=== PATIENT | male | born 1980 | race Caucasian/White ===

== ENCOUNTER 2016-06-24 13:36 | Emergency (ER) | payer SELFPAY ==
[2016-06-24 13:56] VITALS: BP 134/82; PULSE 92; RESP 18; TEMP 98.2
--- NOTE | 2016-06-24 14:24 | ED ---
Upper Extremity HPI - General Chief Complaint: Extremity Injury, Upper Stated Complaint: Right Shoulder Burn Sensation Time Seen by Provider: 06/24/16 14:03 Source: patient Mode of arrival: ambulatory Limitations: no limitations - History of Present Illness Initial Comments: Patient is a 36-year-old male with a chief complaint of right shoulder burning sensation for the past week. Patient reports that denies any injury and he just woke up one day and the pain was worse. Patient states that the pain is a burning sensation that radiates over his deltoid and occasionally will radiate down towards elbow. He states that the pain occurs with certain positions. He states that he has decreased range of motion of his right shoulder as well. 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 He reports that he does not have an orthopedic physician at this time. He states that he can feel me touch his entire arm at this time. He denies any decreased range of motion or strength in his hand or wrist or elbow.Patient denies any recent fever, chills, shortness of breath, chest pain, back pain, abdominal pain, nausea vomiting, numbness or tingling, dysuria or hematuria, constipation or diarrhea, headaches or visual changes, or any other current symptoms. - Related Data Home Medications Medication Instructions Recorded Confirmed ALPRAZolam [Xanax] 1 tab PO BID 11/04/13 02/12/16 Dextroamphetamine/Amphetamine 1 tab PO BID 11/04/13 02/12/16 [Adderall] SUMAtriptan SUCCINATE [Imitrex] 100 mg PO DIRECTED PRN 11/04/13 02/12/16 Omeprazole [PriLOSEC] 20 mg PO AC-BRKFST 06/14/14 02/12/16 Previous Rx's Medication Instructions Recorded Dexamethasone 0.75 mg PO DAILY #12 tab 06/24/16 Allergies Allergy/AdvReac Type Severity Reaction Status Date / Time No Known Allergies Allergy Verified 02/12/16 02:21 Review of Systems ROS Statement: Those systems with pertinent positive or pertinent negative responses have been documented in the HPI. ROS Other: All systems not noted in ROS Statement are negative. Past Medical History Additional Past Medical History / Comment(s): ADHD. headaches History of Any Multi-Drug Resistant Organisms: None Reported Past Surgical History: Back Surgery, Orthopedic Surgery Additional Past Surgical History / Comment(s): risa knee. discs removed in back Past Psychological History: No Psychological Hx Reported, ADD/ADHD Smoking Status: Current every day smoker Past Alcohol Use History: None Reported Past Drug Use History: None Reported General Exam Limitations: no limitations General appearance: alert, in no apparent distress Head exam: Present: atraumatic, normocephalic, normal inspection Eye exam: Present: normal appearance, PERRL, EOMI. Absent: scleral icterus, conjunctival injection, periorbital swelling ENT exam: Present: normal exam, mucous membranes moist Neck exam: Present: normal inspection. Absent: tenderness, meningismus, lymphadenopathy Respiratory exam: Present: normal lung sounds bilaterally. Absent: respiratory distress, wheezes, rales, rhonchi, stridor Cardiovascular Exam: Present: regular rate, normal rhythm, normal heart sounds. Absent: systolic murmur, diastolic murmur, rubs, gallop, clicks GI/Abdominal exam: Present: soft, normal bowel sounds. Absent: distended, tenderness, guarding, rebound, rigid Extremities exam: Present: normal inspection, full ROM, normal capillary refill. Absent: tenderness, pedal edema, joint swelling, calf tenderness Right Shoulder Exam: Present: normal inspection (Patient states she has limited abduction of the shoulder due to pain. Patient reports his only able to abduct his shoulder to 90.). Absent: full ROM Upper Arm exam: Present: normal inspection, full ROM Elbow exam: Present: normal inspection, full ROM Forearm Wrist exam: Present: normal inspection, full ROM Hand Wrist exam: Present: normal inspection, full ROM Neuro motor exam: Present: wrist extension intact, thumb opposition intact, thumb IP flexion intact, thumb adduction intact, fingers 2-5 abduction intact Vascular: Present: vascular compromise Back exam: Present: normal inspection Neurological exam: Present: alert, oriented X3, CN II-XII intact Psychiatric exam: Present: normal affect, normal mood Skin exam: Present: warm, dry, intact, normal color. Absent: rash Course Vital Signs 06/24/16 13:53 Temperature 98.2 F Pulse Rate 92 Respiratory 18 Rate Blood Pressure 134/82 O2 Sat by Pulse 96 Oximetry Medical Decision Making - Medical Decision Making Patient is a 34 year old male with 1 week of right shoulder pain and sharp burning pain. Patient reports it radaites down the deltoid. No associated injury. Xray reviewed to be negative. Patient given Rx for flexeril and steroids. Advised to follow up with Ortho. Given work note for today and tomorrow. Patient wanted the entire week off, I stated he needed to follow up with PCP if that is necessary. Patient understands treatment plan and will comply. Disposition Clinical Impression: Shoulder strain, Brachial plexus neuralgia, Rotator cuff injury Disposition: HOME SELF-CARE Condition: Good Instructions: Rotator Cuff Injury (ED), Rotator Cuff Tendinitis (ED) Additional Instructions: Patient instructed to follow-up with orthopedic physician. Return to the [facility] if any alarming signs or symptoms occur. Complete steroid prescription. Prescriptions: Dexamethasone 0.75 mg PO DAILY #12 tab Referrals: Adan Ashley MD [Primary Care Provider] - 1-2 days Aleksey Corona DO [Doctor of Osteopathic Medicine] - 1-2 days Time of Disposition: 14:39
--- NOTE | 2016-06-24 14:26 | XR ---
EXAMINATION TYPE: XR shoulder complete RT DATE OF EXAM: 06/24/2016 2:20 PM COMPARISON: NONE HISTORY: Pain TECHNIQUE: Shoulder examined in 3 FINDINGS: The humeral head articulates with the glenoid. The acromio-clavicular junction is normal. No acute fractures or dislocations are evident. A follow up study can be performed 7-10 days from acute trauma for continued pain. IMPRESSION: 1. Normal Shoulder
== END 2016-06-24 14:47 | disposition home or self-care (01) ==
LOC: EC 13:36
DX: S46.911A Strain of unspecified muscle, fascia and tendon at shoulder and upper arm level, right arm, initial encounter (principal); S46.001A Unspecified injury of muscle(s) and tendon(s) of the rotator cuff of right shoulder, initial encounter; G58.8 Other specified mononeuropathies; X58.XXXA Exposure to other specified factors, initial encounter; Z79.899 Other long term (current) drug therapy; F90.9 Attention-deficit hyperactivity disorder, unspecified type; F17.200 Nicotine dependence, unspecified, uncomplicated
CPT/HCPCS: 99283

== ENCOUNTER 2017-01-14 06:21 | Emergency (ER) | payer BC ==
[2017-01-14] MEDS ORDERED: HYDROmorphone 1 MG/ML 1 ML SYRINGE IM STA (07:02)
[2017-01-14] MEDS ORDERED: ONDANSETRON ODT 4 MG TAB PO STA (07:02)
--- NOTE | 2017-01-14 07:02 | ED ---
Headache HPI - General Mode of arrival: ambulatory Limitations: no limitations <Carlos Hurst - Last Filed: 01/14/17 07:03> <Amadeo Leonardo - Last Filed: 01/14/17 08:37> - General Chief Complaint: Headache Stated Complaint: headache Time Seen by Provider: 01/14/17 06:47 - History of Present Illness Initial Comments: 36 years old male medically headache since 2:30 AM, he has history of this headache almost once a month he has been suffering from this headache for the last 56 years, he sees Dr. Kong he had head CT and MRI done on the last 6 months. He denies any fever no chills denies any neck pain no chest pain or shortness of breath no abdominal pain no frequency urgency dysuria (Carlos Hurst ) - Related Data Home Medications Medication Instructions Recorded Confirmed Dextroamphetamine/Amphetamine 30 mg PO BID 11/04/13 01/14/17 [Adderall] SUMAtriptan SUCCINATE [Imitrex] 100 mg PO DAILY PRN 11/04/13 01/14/17 Meloxicam [Mobic] 15 mg PO DAILY PRN 01/14/17 01/14/17 Topiramate [Topamax] 100 mg PO BID 01/14/17 01/14/17 oxyCODONE HCL 20 mg PO TID 01/14/17 01/14/17 Allergies Allergy/AdvReac Type Severity Reaction Status Date / Time No Known Allergies Allergy Verified 01/14/17 08:02 Review of Systems ROS Other: All systems not noted in ROS Statement are negative. <Carlos Hurst - Last Filed: 01/14/17 07:03> ROS Other: All systems not noted in ROS Statement are negative. <Amadeo Leonardo - Last Filed: 01/14/17 08:37> ROS Statement: Those systems with pertinent positive or pertinent negative responses have been documented in the HPI. Past Medical History Additional Past Medical History / Comment(s): ADHD. headaches History of Any Multi-Drug Resistant Organisms: None Reported Past Surgical History: Back Surgery, Orthopedic Surgery Additional Past Surgical History / Comment(s): risa knee. discs removed in back Past Psychological History: No Psychological Hx Reported, ADD/ADHD Smoking Status: Current every day smoker Past Alcohol Use History: None Reported Past Drug Use History: None Reported <Carlos Hurst - Last Filed: 01/14/17 07:03> General Exam Limitations: no limitations <Carlos Hurst - Last Filed: 01/14/17 07:03> <Amadeo Leonardo - Last Filed: 01/14/17 08:37> - General Exam Comments Initial Comments: General: The patient is awake and alert, in no distress, and does not appear acutely ill. Skin: Skin is warm and dry and no rashes or lesions are noted. Eye: Pupils are equal, round and reactive to light, extra-ocular movements are intact; there is normal conjunctiva bilaterally. Ears, nose, mouth and throat: There are moist mucous membranes and no oral lesions. Neck: The neck is supple, there is no tenderness or signs of meningitis Cardiovascular: There is a regular rate and rhythm. No murmur, rub or gallop is appreciated. Respiratory: To auscultation bilateral, no wheezing no rhonchi no distress respiratory frazier noticed Gastrointestinal: Soft, non-distended, non-tender abdomen without masses or organomegaly noted. There is no rebound or guarding present. Bowel sounds are unremarkable. Back: There is no tenderness to palpation in the midline. There is no obvious deformity. Musculoskeletal: Normal ROM, no tenderness, There is no pedal edema. There is no calf tenderness or swelling. No cords were appreciated. Neurological: CN II-XII intact, Cranial nerves III through XII are intact. There are no obvious motor or sensory deficits. Coordination appears grossly intact. Speech is normal. Psychiatric: Cooperative, appropriate mood & affect, normal judgment. (Carlos Hurst) Course <Carlos Hurst - Last Filed: 01/14/17 07:03> <Amadeo Leonardo - Last Filed: 01/14/17 08:37> Vital Signs 01/14/17 06:23 Temperature 97.7 F Pulse Rate 70 Respiratory 16 Rate Blood Pressure 141/100 O2 Sat by Pulse 96 Oximetry Patient be endorsed to morning shift after 7 AM (Carlos Hurst) Medical Decision Making <Carlos Hurst - Last Filed: 01/14/17 07:03> <Amadeo Leonardo - Last Filed: 01/14/17 08:37> - Medical Decision Making Patient states she was feeling a little bit better. I gave the patient Toradol and Benadryl and he wanted to go home so he get some sleep in a dark room (Amadeo Leonardo) Disposition <Carlos Hurst - Last Filed: 01/14/17 07:03> Time of Disposition: 08:37 <Amadeo Leonardo - Last Filed: 01/14/17 08:37> Clinical Impression: Headache, Migraine Disposition: HOME SELF-CARE Instructions: Acute Headache (ED) Referrals: Adan Ashley MD [Primary Care Provider] - 1-2 days
--- NOTE | 2017-01-14 07:42 | CT ---
EXAMINATION TYPE: CT brain wo con DATE OF EXAM: 01/14/2017 COMPARISON: CT brain dated 08/10/2014 and MR brain dated 11/23/2014. HISTORY: Headache CT DLP: 1082 mGycm. Automated Exposure Control for Dose Reduction was Utilized. TECHNIQUE: CT scan of the head is performed without contrast. FINDINGS: There is no acute intracranial hemorrhage, mass effect, or midline shift identified. The ventricles and sulci are within normal limits in size. The globes are intact. Frontal sinuses are h ypoplastic. Scant amount of mucosal thickening is seen within the ethmoid and sphenoid sinuses. IMPRESSION: 1. No acute intracranial hemorrhage, mass effect, or midline shift is seen. 2. Minimal paranasal sinus disease.
[2017-01-14] MEDS ORDERED: KETOROLAC 60 MG/2 ML VIAL IVP STA (08:36)
[2017-01-14] MEDS ORDERED: diphenhydrAMINE 50 MG/ML 1 ML VIAL IVP STA (08:36)
[2017-01-14] MEDS ORDERED: KETOROLAC 60 MG/2 ML VIAL IM STA (08:43)
[2017-01-14] MEDS ORDERED: diphenhydrAMINE 50 MG/ML 1 ML VIAL IM STA (08:43)
[2017-01-14 09:04] VITALS: BP 118/57; PULSE 61; RESP 14; TEMP 98.2
== END 2017-01-14 09:03 | disposition home or self-care (01) ==
LOC: EC 06:21
DX: G43.909 Migraine, unspecified, not intractable, without status migrainosus (principal); F90.9 Attention-deficit hyperactivity disorder, unspecified type; F17.200 Nicotine dependence, unspecified, uncomplicated; Z79.891 Long term (current) use of opiate analgesic; Z79.899 Other long term (current) drug therapy
CPT/HCPCS: 70450; 99283; 96372 ×3; J1200; J1885; J1170

== ENCOUNTER 2017-08-05 11:14 | Emergency (ER) | payer BC, OTHER ==
[2017-08-05 11:24] VITALS: BP 123/79; PULSE 79; RESP 18; TEMP 97.4
[2017-08-05] MEDS ORDERED: ORPHENADRINE 30 MG/ML 2 ML VIAL IM STA (12:33)
[2017-08-05] MEDS ORDERED: KETOROLAC 30 MG/ML 1 ML VIAL IM STA (12:33)
--- NOTE | 2017-08-05 12:38 | ED ---
Back Pain HPI - General Chief Complaint: Back Pain/Injury Stated Complaint: Back and neck pain Time Seen by Provider: 08/05/17 12:28 Source: patient, RN notes reviewed Limitations: no limitations - History of Present Illness Initial Comments: This is a 37-year-old male who presents to the emergency department with chief complaint of acute on chronic back pain. 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 He states that he was repeatedly bending over and twisting. He states that since that time he feels like he strained muscles in his low back and describes the pain as sharp, occurring more so on the left side of his low back. Patient states that he has had previous lumbar surgeries. He states that he contacted his primary care provider, Dr. Ashley who advised him to present to the emergency department for evaluation and lumbar x-rays. Patient states that he currently does not take any medication for his low back pain. Currently rates his pain as 8/10. Denies saddle paresthesias or loss of bladder or bowel function. Denies any radiation of pain down the legs. Denies fevers or chills, abdominal pain, nausea or vomiting. - Related Data Home Medications Medication Instructions Recorded Confirmed Dextroamphetamine/Amphetamine 30 mg PO BID 11/04/13 01/14/17 [Adderall] SUMAtriptan SUCCINATE [Imitrex] 100 mg PO DAILY PRN 11/04/13 01/14/17 Meloxicam [Mobic] 15 mg PO DAILY PRN 01/14/17 01/14/17 Topiramate [Topamax] 100 mg PO BID 01/14/17 01/14/17 oxyCODONE HCL 20 mg PO TID 01/14/17 01/14/17 Previous Rx's Medication Instructions Recorded Ibuprofen 600 mg PO Q6HR #20 tablet 08/05/17 Allergies Allergy/AdvReac Type Severity Reaction Status Date / Time No Known Allergies Allergy Verified 08/05/17 11:24 Review of Systems ROS Statement: Those systems with pertinent positive or pertinent negative responses have been documented in the HPI. ROS Other: All systems not noted in ROS Statement are negative. Past Medical History Additional Past Medical History / Comment(s): ADHD. headaches History of Any Multi-Drug Resistant Organisms: None Reported Past Surgical History: Back Surgery, Orthopedic Surgery Additional Past Surgical History / Comment(s): risa knee. discs removed in back Past Psychological History: No Psychological Hx Reported, ADD/ADHD Smoking Status: Current every day smoker Past Alcohol Use History: None Reported Past Drug Use History: None Reported General Exam - General Exam Comments Initial Comments: General: Awake and alert, well-developed; in no apparent distress. HEENT: Head atraumatic, normocephalic. Pupils are equal, round and reactive to light. Extraocular movements intact. Oropharynx moist without erythema or exudate. Neck: Supple. Normal ROM. Cardiovascular: Regular rate and rhythm. No murmurs, rubs or gallops. Chest symmetrical. Respiratory: Lungs clear to auscultation bilaterally. No wheezes, rales or rhonchi. Normal respiratory effort with no use of accessory muscles. Musculoskeletal: Normal range of motion of spine. There is tenderness on palpation of bilateral lumbar paraspinal muscles. No bony point vertebral or SI joint tenderness. Patient is ambulating normally. Sensation is intact. Pedal and posterior tibial pulses are 2+ equal and palpable bilaterally. Skin: [place], warm and dry without rashes or lesions. Neurological: Alert and oriented x3. CN II-XII grossly intact. Speech is fluent and answers are appropriate. No focal neuro deficits. Psychiatric: Normal mood and affect. No overt signs of depression or anxiety noted. Limitations: no limitations Course Vital Signs 08/05/17 11:21 Temperature 97.4 F L Pulse Rate 79 Respiratory 18 Rate Blood Pressure 123/79 O2 Sat by Pulse 97 Oximetry Medical Decision Making - Medical Decision Making This is a 37-year-old male who presents to the emergency department for evaluation of acute on chronic back pain. Patient states that he strained his low back last Thursday while at work. There is tenderness on palpation of bilateral lumbar paraspinal muscles. Patient given Toradol and Norflex while in the emergency department. Lumbar x-rays were obtained. X-ray revealed no acute abnormalities. Patient's vital signs are stable and he is in no acute distress. Likely suffering from a lumbar strain. He will be discharged home. He is in agreement and voices understanding. All questions were answered. - Radiology Data Radiology results: report reviewed X-ray lumbar spine in impression: Uncomplicated appearance to the L5-S1 posterior interbody fusion. Mild degenerative changes above the fusion at L4 to L5. No vertebral compression collapsed or malalignment. Disposition Clinical Impression: Strain of lumbar region Disposition: HOME SELF-CARE Condition: Good Instructions: Low Back Strain (ED), Lower Back Exercises (ED) Additional Instructions: Please take medications as prescribed. Please follow up with primary care provider within 1-2 days. Return to emergency department if symptoms should worsen or any concerns arise. Prescriptions: Ibuprofen 600 mg PO Q6HR #20 tablet Referrals: Adan Ashley MD [Primary Care Provider] - 1-2 days Time of Disposition: 13:20
--- NOTE | 2017-08-05 13:12 | XR ---
EXAMINATION TYPE: XR lumbar spine 2 or 3V DATE OF EXAM: 08/05/2017 COMPARISON: NONE HISTORY: 37-year-old male low back pain from lifting TECHNIQUE: 3 views FINDINGS: 5 lumbar type vertebral bodies. L5-S1 posterior and interbody fusion is demonstrated. Mild degenerati ve disc disease above the fusion at L4-L5 and facet arthropathy. Vertebral body heights are maintaine d and alignment is preserved. IMPRESSION: Uncomplicated appearance to the L5-S1 posterior and interbody fusion. Mild degenerative changes above the fusion at L4-L5. No vertebral compression collapse or malalignment.
== END 2017-08-05 13:24 | disposition home or self-care (01) ==
LOC: EC 11:14
DX: S39.012A Strain of muscle, fascia and tendon of lower back, initial encounter (principal); F90.9 Attention-deficit hyperactivity disorder, unspecified type; F17.200 Nicotine dependence, unspecified, uncomplicated; Z79.899 Other long term (current) drug therapy; X50.1XXA Overexertion from prolonged static or awkward postures, initial encounter; Y92.69 Other specified industrial and construction area as the place of occurrence of the external cause; Y99.0 Civilian activity done for income or pay
CPT/HCPCS: 72100; 99283; 96372 ×2; J2360; J1885

== ENCOUNTER → 2017-08-15 | Outpatient (CLI) | payer BC ==
--- NOTE | 2017-08-15 14:26 | MR ---
EXAMINATION TYPE: MR lumbar spine wo con DATE OF EXAM: 08/15/2017 COMPARISON: NONE HISTORY: Disc degeneration disease TECHNIQUE: Multiplanar, multisequence images of the lumbar spine were acquired. L1-L2: Normal disc appearance without desiccation. No herniation, protrusion or disc bulging. No ca nal stenosis is present. Foramina are patent bilaterally. L2-L3: Normal disc appearance without desiccation. No herniation, protrusion or disc bulging. No ca nal stenosis is present. Foramina are patent bilaterally. L3-L4: Broad-based disc bulge causes only minimal anterior mass effect on the thecal sac. There is fa cet arthropathy with hypertrophy of the ligamentum flavum, no significant central stenosis. L4-L5: The posterior central broad-based disc bulge is again noted, there is only mild central stenos is. Circumferential extension of endplate disc complex encroaches minimally on the foramina. There is facet arthropathy with hypertrophy ligamentum flavum encroaching on the lateral recesses L5-S1: Postop changes as described. There is circumferential extension of endplate disc complex towar ds the left causing foraminal encroachment, correlate for left L5 radiculopathy, lateral extension of endplate disc complex, left lateral disc herniation suspected to have developed in the interval. Lumbar segments are intact. No paraspinal masses are identified. Conus medullaris has a normal appe arance. Postop changes are present status post lumbosacral fusion L5-S1 as on prior exam, loss of dis c height signal present at L5-S1 with endplate discogenic marrow signal change, intervertebral spacin g material, susceptibility artifact is present due to fixation hardware. Multilevel spondylosis prese nt. IMPRESSION: Findings suspicious for interval lateral disc herniation at L5-S1 although there is artifact present due to patient's hardware. Correlate for left L5 radiculopathy. Broad-based disc bulge again noted at L4-5, postop changes.
== END | disposition home or self-care (01) ==
LOC: RADMRIMAIN 09:58
PROVIDERS: ATTEND Family Medicine
DX: M51.26 Other intervertebral disc displacement, lumbar region (principal); Z98.890 Other specified postprocedural states
CPT/HCPCS: 72148

== ENCOUNTER 2018-04-03 17:08 | Emergency (ER) | payer OTHER ==
[2018-04-03 17:12] VITALS: TEMP 97.6
[2018-04-03] MEDS ORDERED: METOCLOPRAMIDE 5 MG/ML 2 ML VIAL IVP STA (17:27)
[2018-04-03] MEDS ORDERED: KETOROLAC 30 MG/ML 1 ML VIAL IVP STA (17:27)
[2018-04-03] MEDS ORDERED: SODIUM CHLORIDE 0.9% 1,000 ML IV STA (17:27)
[2018-04-03] MEDS ORDERED: diphenhydrAMINE 50 MG CAP PO STA (17:27)
--- NOTE | 2018-04-03 18:25 | ED ---
General Adult HPI - General Chief complaint: Headache Stated complaint: Headache Time Seen by Provider: 04/03/18 17:18 Source: patient, RN notes reviewed Mode of arrival: ambulatory Limitations: no limitations - History of Present Illness Initial comments: Patient 38-year-old male with significant past medical history for chronic headaches, presented to the emergency room today with a chief complaint of a headache that started at 7a. patient does admit to photosensitivity. Does admit to nausea and an episode of vomiting. Patient states that headache is located throughout his head. He states he has had similar headaches similar to this in the past. Patient states that he tried medication at home with little relief. Patient denies any new symptoms or complaints. Patient denies any recent fever, chills, shortness of breath, chest pain, back pain, abdominal pain , nausea or vomiting, numbness or tingling, dysuria or hematuria, visual changes , or any other complaints. - Related Data Home Medications Medication Instructions Recorded Confirmed Dextroamphetamine/Amphetamine 30 mg PO BID 11/04/13 01/14/17 [Adderall] SUMAtriptan SUCCINATE [Imitrex] 100 mg PO DAILY PRN 11/04/13 01/14/17 Meloxicam [Mobic] 15 mg PO DAILY PRN 01/14/17 01/14/17 Topiramate [Topamax] 100 mg PO BID 01/14/17 01/14/17 oxyCODONE HCL 20 mg PO TID 01/14/17 01/14/17 Previous Rx's Medication Instructions Recorded Ibuprofen 600 mg PO Q6HR #20 tablet 08/05/17 Allergies Allergy/AdvReac Type Severity Reaction Status Date / Time No Known Allergies Allergy Verified 04/03/18 17:12 Review of Systems ROS Statement: Those systems with pertinent positive or pertinent negative responses have been documented in the HPI. ROS Other: All systems not noted in ROS Statement are negative. Past Medical History Additional Past Medical History / Comment(s): ADHD. headaches History of Any Multi-Drug Resistant Organisms: None Reported Past Surgical History: Back Surgery, Orthopedic Surgery Additional Past Surgical History / Comment(s): risa knee. discs removed in back Past Psychological History: ADD/ADHD Smoking Status: Current every day smoker Past Alcohol Use History: None Reported Past Drug Use History: Marijuana General Exam - General Exam Comments Initial Comments: General: The patient is awake and alert, in no distress, and does not appear acutely ill. Eye: Pupils are equal, round and reactive to light. Extra-ocular movements are intact. No nystagmus. There is normal conjunctiva bilaterally. No signs of icterus. Ears, nose, mouth and throat: There are moist mucous membranes and no oral lesions. Neck: The neck is supple, there is no tenderness or JVD. Cardiovascular: There is a regular rate and rhythm. No murmur, rub or gallop is appreciated. Respiratory: Lungs are clear to auscultation, respirations are non-labored, breath sounds are equal. No wheezes, stridor, rales, or rhonchi. Musculoskeletal: Normal ROM, no tenderness. Sensation intact. Strength 5/5. Pulses equal bilaterally 2+. Neurological: A&O x 3. CN II-XII intact, There are no obvious motor or sensory deficits. Coordination appears grossly intact. Speech is normal. Skin: Skin is warm and dry and no rashes or lesions are noted. Psychiatric: Cooperative, appropriate mood & affect, normal judgment. Limitations: no limitations Course Vital Signs 04/03/18 17:10 Temperature 97.6 F Pulse Rate 74 Respiratory 20 Rate Blood Pressure 136/87 O2 Sat by Pulse 99 Oximetry Medical Decision Making - Medical Decision Making Patient reexamined at this time shows no signs of distress. Isn't feeling better after Reglan, Benadryl, Toradol, IV fluids. Patient discharged home. He is advised to continue anti-inflammatories for a rebound headache. Patient states understanding and is in agreement. Disposition Clinical Impression: Headache Disposition: HOME SELF-CARE Condition: Good Instructions: Acute Headache (ED) Additional Instructions: Please use medication as discussed. Please follow-up with family doctor in the next 2 days of symptoms have not improved. Please return to emergency room if the symptoms increase or worsen or for any other concerns. Is patient prescribed a controlled substance at d/c from ED?: No Referrals: Adan Ashley MD [Primary Care Provider] - 1-2 days Time of Disposition: 18:57
[2018-04-03 19:01] VITALS: BP 103/65; PULSE 60; RESP 18
== END 2018-04-03 19:21 | disposition home or self-care (01) ==
LOC: EC 17:08
DX: R51 Headache (principal); R11.2 Nausea with vomiting, unspecified; F90.9 Attention-deficit hyperactivity disorder, unspecified type; F17.200 Nicotine dependence, unspecified, uncomplicated; Z79.891 Long term (current) use of opiate analgesic; Z79.899 Other long term (current) drug therapy
CPT/HCPCS: 99284; 96374; 96375; 96361; J2765; J1885

== ENCOUNTER 2019-08-10 06:24 | Emergency (ER) | payer OTHER ==
[2019-08-10 06:31] VITALS: PULSE 104; RESP 20; TEMP 97.4
[2019-08-10 06:33] VITALS: BP 114/78
--- NOTE | 2019-08-10 07:06 | ED ---
General Adult HPI - General Chief complaint: Upper Respiratory Infection Stated complaint: Congestion/Cough Time Seen by Provider: 08/10/19 06:34 Source: patient, RN notes reviewed Mode of arrival: ambulatory - History of Present Illness Initial comments: 39-year-old male with a past medical history of headaches presents to the emergency department for a chief complaint of cough 2 days. Patient states he has had a nonproductive cough for the past 2 days. States he does have associated congestion as well. Admits that when he gets into a coughing fit he has shortness of breath but otherwise does not have shortness of breath. Patient has not had any fevers but does state he felt warm yesterday. Patient denies any domestic or international travel history in the past 14 days.Patient has no other complaints at this time including shortness of breath, chest pain, abdominal pain, nausea or vomiting, headache, or visual changes. - Related Data Home Medications Medication Instructions Recorded Confirmed Dextroamphetamine/Amphetamine 30 mg PO BID 11/04/13 01/14/17 [Adderall] SUMAtriptan SUCCINATE [Imitrex] 100 mg PO DAILY PRN 11/04/13 01/14/17 Meloxicam [Mobic] 15 mg PO DAILY PRN 01/14/17 01/14/17 Topiramate [Topamax] 100 mg PO BID 01/14/17 01/14/17 oxyCODONE HCL [oxyCODONE HCL (IR)] 20 mg PO TID 01/14/17 01/14/17 Previous Rx's Medication Instructions Recorded Ibuprofen 600 mg PO Q6HR #20 tablet 08/05/17 Benzonatate [Tessalon Perles] 200 mg PO Q8H PRN #15 capsule 08/10/19 Allergies Allergy/AdvReac Type Severity Reaction Status Date / Time No Known Allergies Allergy Verified 08/10/19 06:32 Review of Systems ROS Statement: Those systems with pertinent positive or pertinent negative responses have been documented in the HPI. ROS Other: All systems not noted in ROS Statement are negative. Past Medical History Additional Past Medical History / Comment(s): ADHD. headaches History of Any Multi-Drug Resistant Organisms: None Reported Past Surgical History: Back Surgery, Orthopedic Surgery Additional Past Surgical History / Comment(s): risa knee. discs removed in back Past Psychological History: ADD/ADHD Smoking Status: Current every day smoker Past Alcohol Use History: Occasional Past Drug Use History: Marijuana General Exam General appearance: alert, in no apparent distress Head exam: Present: atraumatic, normocephalic, normal inspection Eye exam: Present: normal appearance, PERRL, EOMI. Absent: scleral icterus, conjunctival injection, periorbital swelling ENT exam: Present: normal exam, normal oropharynx, mucous membranes moist, TM's normal bilaterally, normal external ear exam Neck exam: Present: normal inspection, full ROM. Absent: tenderness, meningismus, lymphadenopathy Respiratory exam: Present: normal lung sounds bilaterally. Absent: respiratory distress, wheezes, rales, rhonchi, stridor Cardiovascular Exam: Present: regular rate, normal rhythm, normal heart sounds. Absent: systolic murmur, diastolic murmur, rubs, gallop, clicks Neurological exam: Present: alert Psychiatric exam: Present: normal affect, normal mood Course Vital Signs 08/10/19 08/10/19 06:27 07:14 Temperature 97.4 F L Pulse Rate 104 H Respiratory 20 20 Rate Blood Pressure 114/78 O2 Sat by Pulse 96 Oximetry Medical Decision Making - Medical Decision Making Vitals are stable. Patient is well appearing. Influenza is negative. Chest x- ray negative. At this time current recommendations are not to test for Covid 19 unless less patient has had certain travel history or exposure. I discussed this with the patient and he is understanding. He will self isolate. He will return for worsening symptoms or worsening shortness of breath. - Lab Data Lab Results 08/10/19 Range/Units 06:34 Influenza Type A RNA Not Detected (Not Detectd) Influenza Type B (PCR) Not Detected (Not Detectd) Disposition Clinical Impression: Cough Disposition: HOME SELF-CARE Condition: Good Instructions (If sedation given, give patient instructions): Acute Cough (ED) Additional Instructions: Take medications as directed. Please follow up with primary care in 1-2 days. Return to the emergency department for any worsening symptoms. Prescriptions: Benzonatate [Tessalon Perles] 200 mg PO Q8H PRN #15 capsule PRN Reason: Cough Is patient prescribed a controlled substance at d/c from ED?: No Referrals: Adan Ashley MD [Primary Care Provider] - 1-2 days Time of Disposition: 07:24
--- NOTE | 2019-08-10 07:15 | XR ---
EXAMINATION TYPE: XR chest 2V DATE OF EXAM: 08/10/2019 COMPARISON: 06/05/2013 HISTORY: Cough, congestion and difficulty breathing TECHNIQUE: Frontal and lateral views of the chest are obtained. FINDINGS: There is no focal air space opacity, pleural effusion, or pneumothorax seen. The cardiac silhouette size is within normal limits. The osseous structures are intact. IMPRESSION: No acute cardiopulmonary process.
== END 2019-08-10 07:33 | disposition home or self-care (01) ==
LOC: EC 06:24
DX: R05 Cough (principal); R09.89 Other specified symptoms and signs involving the circulatory and respiratory systems; F90.9 Attention-deficit hyperactivity disorder, unspecified type; F17.200 Nicotine dependence, unspecified, uncomplicated; Z79.891 Long term (current) use of opiate analgesic; Z79.899 Other long term (current) drug therapy; Z86.69 Personal history of other diseases of the nervous system and sense organs
CPT/HCPCS: 71046; 87502; 99283

== ENCOUNTER 2019-08-21 22:23 | Emergency (ER) | payer OTHER ==
[2019-08-21] MEDS ORDERED: SODIUM CHLORIDE 0.9% 1,000 ML IV STA (23:05)
--- NOTE | 2019-08-21 23:08 | ED ---
General Adult HPI - General Chief complaint: Upper Respiratory Infection Stated complaint: SOB Time Seen by Provider: 08/21/19 22:33 Source: patient, RN notes reviewed, old records reviewed Mode of arrival: ambulatory Limitations: no limitations - History of Present Illness Initial comments: 39-year-old male patient presents for chief complaint of cough. Patient reports that this has been ongoing for the last 11 days. Patient reports that he is short of breath. Patient reports with walking he becomes winded. Patient reports that after coughing he feels like hes going to pass out. Patient states that his lungs are sore from coughing.. Denies any focal area of pain and states he believes it is from the coughing. States that he was having fevers 08/09-08/12 but not any longer. Denies any history of heart problems. Denies any other complaints. Systemic: Pt denies fatigue, fever/chills, rash. Pt denies weakness, night sweats, weight loss. Neuro: Pt denies headache, visual disturbances, syncope. HEENT: Pt denies ocular discharge or irritation, otalgia, rhinorrhea, pharyngitis or notable lymphadenopathy. Cardiopulmonary: Pt denies heart palpitations, dyspnea on exertion. Abdominal/GI: Pt denies abdominal pain, n/v/d. : Pt denies dysuria, burning w/ urination, frequency/urgency. Denies new onset urinary or bowel incontinence. MSK: Pt denies myalgia, loss of strength or function in extremities. Neuro: Pt denies new onset weakness, paresthesias. - Related Data Home Medications Medication Instructions Recorded Confirmed Dextroamphetamine/Amphetamine 30 mg PO BID 11/04/13 01/14/17 [Adderall] SUMAtriptan SUCCINATE [Imitrex] 100 mg PO DAILY PRN 11/04/13 01/14/17 Meloxicam [Mobic] 15 mg PO DAILY PRN 01/14/17 01/14/17 Topiramate [Topamax] 100 mg PO BID 01/14/17 01/14/17 oxyCODONE HCL [oxyCODONE HCL (IR)] 20 mg PO TID 01/14/17 01/14/17 Previous Rx's Medication Instructions Recorded Ibuprofen 600 mg PO Q6HR #20 tablet 08/05/17 Benzonatate [Tessalon Perles] 200 mg PO Q8H PRN #15 capsule 08/10/19 Albuterol Inhaler [Ventolin Hfa 1 - 2 puff INHALATION Q4-6H PRN #1 08/22/19 Inhaler] inhaler Allergies Allergy/AdvReac Type Severity Reaction Status Date / Time No Known Allergies Allergy Verified 08/21/19 22:31 Review of Systems ROS Statement: Those systems with pertinent positive or pertinent negative responses have been documented in the HPI. ROS Other: All systems not noted in ROS Statement are negative. Past Medical History Additional Past Medical History / Comment(s): ADHD. headaches History of Any Multi-Drug Resistant Organisms: None Reported Past Surgical History: Back Surgery, Orthopedic Surgery Additional Past Surgical History / Comment(s): risa knee. discs removed in back Past Psychological History: ADD/ADHD Smoking Status: Current every day smoker Past Alcohol Use History: Occasional Past Drug Use History: Marijuana General Exam - General Exam Comments Initial Comments: Constitutional: NAD, AOX3, Pt has pleasant affect. HEENT: NC/AT, trachea midline, neck supple, no lymphadenopathy. Posterior phary nx non erythematous, without exudates. External ears appear normal, without discharge. Mucous membranes moist. Eyes PERRLA, EOM intact. There is no scleral icterus. No pallor noted. Cardiopulmonary: RRR, no murmurs, rubs or gallops, no JVD noted. Lungs CTAB in anterior and posterior mancilla. No peripheral edema. Abdominal exam: Abdomen soft and non-distended. Abdomen non-tender to palpation in all 4 quadrants. Bowel sounds active in LLQ. No hepatosplenomegaly. No ecchymosis Neuro: CN II-XII grossly intact. No nuchal rigidity. No raccon eyes, no holder sign, no hemotympanum. No cervical spinal tenderness. MSK: No posterior calf tenderness bilaterally, homans sign negative bilaterally. Posterior tibialis and radial pulse +2 bilaterally. Sensation intact in upper and lower extremities. Full active ROM in upper and lower extremities, 5/5 stregnth. Limitations: no limitations Course Vital Signs 08/21/19 22:27 Temperature 98.2 F Pulse Rate 94 Respiratory 20 Rate Blood Pressure 117/76 O2 Sat by Pulse 95 Oximetry Medical Decision Making - Medical Decision Making 39-year-old male patient presents for chief complaint of cough. Patient reports that this has been ongoing for the last 11 days. Patient reports that he is short of breath. Patient reports with walking he becomes winded. Patient reports that after coughing he feels like hes going to pass out. Patient states that his lungs are sore from coughing.. Denies any focal area of pain and states he believes it is from the coughing. States that he was having fevers 08/09-08/12 but not any longer. Denies any history of heart problems. Denies any other complaints. Patient pt viral signs are stable, afebrile. Physical exam didn't display acute pathology. Laboratory investigations were obtained and are noncompressive. D-dimer is negative. Troponin negative. EKG nonischemic. Chest revealed no acute process. There is clinical concern the patient could potentially be infected with COVID 19. Ambulatory pulse ox in room was obtained and patient did not saturate below 95%. Patient will be discharged to follow up with primary care provider will return to ER if condition worsens. Advised to self quarantine for the next 14 days. Case discussed with Dr. Billings. - Lab Data Result diagrams: 08/21/19 23:20 08/21/19 23:20 Lab Results 08/21/19 08/21/19 08/21/19 Range/Units 23:20 23:20 23:20 WBC 7.0 (3.8-10.6) k/uL RBC 4.94 (4.30-5.90) m/uL Hgb 15.5 (13.0-17.5) gm/dL Hct 43.7 (39.0-53.0) % MCV 88.5 (80.0-100.0) fL MCH 31.4 (25.0-35.0) pg MCHC 35.5 (31.0-37.0) g/dL RDW 12.8 (11.5-15.5) % Plt Count 293 (150-450) k/uL Neutrophils % 55 % Lymphocytes % 28 % Monocytes % 9 % Eosinophils % 3 % Basophils % 2 % Neutrophils # 3.9 (1.3-7.7) k/uL Lymphocytes # 2.0 (1.0-4.8) k/uL Monocytes # 0.6 (0-1.0) k/uL Eosinophils # 0.2 (0-0.7) k/uL Basophils # 0.1 (0-0.2) k/uL D-Dimer 0.23 (<0.60) mg/L FEU Sodium 138 (137-145) mmol/L Potassium 4.2 (3.5-5.1) mmol/L Chloride 102 (98-107) mmol/L Carbon Dioxide 28 (22-30) mmol/L Anion Gap 8 mmol/L BUN 16 (9-20) mg/dL Creatinine 1.00 (0.66-1.25) mg/dL Est GFR (CKD-EPI)AfAm >90 (>60 ml/min/1.73 sqM) Est GFR (CKD-EPI)NonAf >90 (>60 ml/min/1.73 sqM) Glucose 91 (74-99) mg/dL Calcium 9.4 (8.4-10.2) mg/dL Magnesium 2.2 (1.6-2.3) mg/dL Total Bilirubin 0.7 (0.2-1.3) mg/dL AST 31 (17-59) U/L ALT 31 (4-49) U/L Alkaline Phosphatase 69 (38-126) U/L Troponin I (0.000-0.034) ng/mL NT-Pro-B Natriuret Pep pg/mL Total Protein 7.6 (6.3-8.2) g/dL Albumin 4.7 (3.5-5.0) g/dL 08/21/19 08/21/19 Range/Units 23:20 23:20 WBC (3.8-10.6) k/uL RBC (4.30-5.90) m/uL Hgb (13.0-17.5) gm/dL Hct (39.0-53.0) % MCV (80.0-100.0) fL MCH (25.0-35.0) pg MCHC (31.0-37.0) g/dL RDW (11.5-15.5) % Plt Count (150-450) k/uL Neutrophils % % Lymphocytes % % Monocytes % % Eosinophils % % Basophils % % Neutrophils # (1.3-7.7) k/uL Lymphocytes # (1.0-4.8) k/uL Monocytes # (0-1.0) k/uL Eosinophils # (0-0.7) k/uL Basophils # (0-0.2) k/uL D-Dimer (<0.60) mg/L FEU Sodium (137-145) mmol/L Potassium (3.5-5.1) mmol/L Chloride (98-107) mmol/L Carbon Dioxide (22-30) mmol/L Anion Gap mmol/L BUN (9-20) mg/dL Creatinine (0.66-1.25) mg/dL Est GFR (CKD-EPI)AfAm (>60 ml/min/1.73 sqM) Est GFR (CKD-EPI)NonAf (>60 ml/min/1.73 sqM) Glucose (74-99) mg/dL Calcium (8.4-10.2) mg/dL Magnesium (1.6-2.3) mg/dL Total Bilirubin (0.2-1.3) mg/dL AST (17-59) U/L ALT (4-49) U/L Alkaline Phosphatase (38-126) U/L Troponin I <0.012 (0.000-0.034) ng/mL NT-Pro-B Natriuret Pep 25 pg/mL Total Protein (6.3-8.2) g/dL Albumin (3.5-5.0) g/dL - EKG Data -: EKG Interpreted by Me (and Dr. Billings) EKG Comments: Ventricular rate 80, VT interval 178, QRS 94, QT/QTC 37/431. Normal sinus rhythm, normal EKG, no concern for acute ischemia. Disposition Clinical Impression: Cough Disposition: HOME SELF-CARE Condition: Stable Instructions (If sedation given, give patient instructions): Acute Cough (ED) Additional Instructions: Follow-up with primary care provider tomorrow. Use albuterol puff inhaler as needed. Return to ER if condition worsens or if you feel like your breathing is worsening in anyway. Self quarantine for next 14 days. Prescriptions: Albuterol Inhaler [Ventolin Hfa Inhaler] 1 - 2 puff INHALATION Q4-6H PRN #1 inhaler PRN Reason: Cough Is patient prescribed a controlled substance at d/c from ED?: No Referrals: Adan Ashley MD [Primary Care Provider] - 1-2 days
--- NOTE | 2019-08-21 23:28 | XR ---
EXAMINATION TYPE: XR chest 1V DATE OF EXAM: 08/21/2019 COMPARISON: 08/10/2019 HISTORY: Cough TECHNIQUE: Single view FINDINGS: Heart and mediastinum are normal. Lungs are clear. Diaphragm is normal. Bony thorax appears normal. IMPRESSION: Normal chest. No change.
[2019-08-21 23:30] LABS: Basophils # (A) 0.1 k/uL (0-0.2); Basophils % (A) 2 %; Eosinophils # (A) 0.2 k/uL (0-0.7); Eosinophils % (A) 3 %; HCT 43.7 % (39.0-53.0); HGB 15.5 gm/dL (13.0-17.5); Lymphocytes % (A) 28 %; MCH 31.4 pg (25.0-35.0); MCHC 35.5 g/dL (31.0-37.0); MCV 88.5 fL (80.0-100.0); Mean Platelet Volume 6.8; Monocytes # (A) 0.6 k/uL (0-1.0); Monocytes % (A) 9 %; Neutrophils # (A) 3.9 k/uL (1.3-7.7); Neutrophils % (A) 55 %; Platelet Count 293 k/uL (150-450); RBC 4.94 m/uL (4.30-5.90); RDW 12.8 % (11.5-15.5)
[2019-08-21 23:38] LABS: ALT 31 U/L (4-49); AST 31 U/L (17-59); African American GFR (CKD) >90 (>60 ml/min/1.73 sqM); Albumin 4.7 g/dL (3.5-5.0); Alkaline Phosphatase 69 U/L (38-126); Anion Gap 8 mmol/L; Blood Urea Nitrogen 16 mg/dL (9-20); Calcium 9.4 mg/dL (8.4-10.2); Carbon Dioxide 28 mmol/L (22-30); Chloride 102 mmol/L (98-107); Glucose 91 mg/dL (74-99); Magnesium 2.2 mg/dL (1.6-2.3); Non-African American GFR(CKD) >90 (>60 ml/min/1.73 sqM); Potassium 4.2 mmol/L (3.5-5.1); Sodium 138 mmol/L (137-145); Total Bilirubin 0.7 mg/dL (0.2-1.3); Total Protein 7.6 g/dL (6.3-8.2)
[2019-08-22 00:44] VITALS: BP 121/77; PULSE 74; RESP 18; TEMP 98.1
== END 2019-08-22 00:44 | disposition home or self-care (01) ==
LOC: EC 22:23
DX: R05 Cough (principal); R06.02 Shortness of breath; Z20.828 Contact with and (suspected) exposure to other viral communicable diseases; F90.9 Attention-deficit hyperactivity disorder, unspecified type; F17.200 Nicotine dependence, unspecified, uncomplicated; Z79.891 Long term (current) use of opiate analgesic; Z79.899 Other long term (current) drug therapy; Z86.69 Personal history of other diseases of the nervous system and sense organs
CPT/HCPCS: 36415; 71045; 80053; 83735; 83880; 84484; 85025; 85379; 93005; 96360; 99285

== ENCOUNTER 2019-12-30 09:59 | Day surgery (SDC) | payer OTHER ==
[2019-12-28 13:08] VITALS: BMI 30.8
[~2019-12-30 09:59] MED LIST: LACTATED RINGERS 1,000 ML IV SCH; LIDOCAINE 1% (10MG/ML) FOR IV START INTRADERMA PRN
[2019-12-30 11:09] VITALS: TEMP 97.8
[2019-12-30] MEDS ORDERED: LACTATED RINGERS 1,000 ML IV ONE (11:14)
[2019-12-30] MEDS ORDERED: LIDOCAINE 1% INJ 10MG/ML (20 ML MDV) ONE (12:39)
[2019-12-30] MEDS ORDERED: PROPOFOL 10 MG/ML 20 ML VIAL IV ONE (12:39)
--- NOTE | 2019-12-30 12:40 | P.GSHP ---
History of Present Illness H&P Date: 12/30/19 Chief Complaint: GERD 38-year-old male presents today for EGD. He's had issues with GERD. Past Medical History Past Medical History: GERD/Reflux Additional Past Medical History / Comment(s): ADHD. headaches History of Any Multi-Drug Resistant Organisms: None Reported Past Surgical History: Back Surgery, Orthopedic Surgery Additional Past Surgical History / Comment(s): risa knee SX. discs removed in back Past Anesthesia/Blood Transfusion Reactions: No Reported Reaction Smoking Status: Current every day smoker - Past Family History Mother Family Medical History: No Reported History Medications and Allergies Home Medications Medication Instructions Recorded Confirmed Type Dextroamphetamine/Amphetamine 30 mg PO BID 11/04/13 12/28/19 History [Adderall] Meloxicam [Mobic] 15 mg PO DAILY PRN 01/14/17 12/28/19 History Benzonatate [Tessalon Perles] 200 mg PO Q8H PRN #15 capsule 08/10/19 12/28/19 Rx Albuterol Inhaler (Mhu) [Ventolin 1 - 2 puff INHALATION Q4-6H PRN #1 08/22/19 12/28/19 Rx Hfa Inhaler (Mhu)] inhaler Ibuprofen 600 mg PO Q6HR PRN 12/28/19 12/28/19 History Omeprazole [PriLOSEC] 20 mg PO AC-BID 12/28/19 12/28/19 History Allergies Allergy/AdvReac Type Severity Reaction Status Date / Time No Known Allergies Allergy Verified 12/28/19 13:01 Surgical - Exam Vital Signs Temp Pulse Resp BP Pulse Ox 97.8 F 69 18 124/82 97 12/30/19 11:08 12/30/19 11:08 12/30/19 11:08 12/30/19 11:08 12/30/19 11:08 - General well developed, well nourished, no distress - Eyes PERRL - ENT normal pinna - Neck no masses - Respiratory normal expansion - Cardiovascular Rhythm: regular - Abdomen Abdomen: soft, non tender Assessment and Plan Assessment: GERD. We'll perform EGD.
--- NOTE | 2019-12-30 12:49 | P.OP ---
Date of Procedure: 12/30/19 Preoperative Diagnosis: GERD Postoperative Diagnosis: Antral gastritis Small sliding hiatal hernia Mild esophagitis Procedure(s) Performed: EGD Anesthesia: MAC Surgeon: William Alston Pathology: other (Antrum, esophagus) Condition: stable Disposition: PACU Description of Procedure: The patient's placed on the endoscopy table in the lateral position. He received IV sedation. The gastroscope placed oropharynx and passed in the esophagus and stomach. Scope was then placed through the pylorus. First and second portion of the duodenum appeared normal. Scope was then brought back the antrum this. Mildly inflamed. A biopsies performed. Scope was unretroflexed and remainder some appeared normal. There was a small sliding hiatal hernia. The GE junction was at 47. The distal esophagus appeared minimally inflamed and a biopsies performed. The proximal esophagus appeared normal. Scope was withdrawn for patient.
[2019-12-30 13:10] VITALS: BP 118/75; PULSE 71; RESP 16
== END 2019-12-30 13:22 | disposition home or self-care (01) ==
LOC: ORWHC2ENDO 09:59
PROVIDERS: ATTEND Surgery
DX: K29.50 Unspecified chronic gastritis without bleeding (principal); K44.9 Diaphragmatic hernia without obstruction or gangrene; K21.0 Gastro-esophageal reflux disease with esophagitis; F90.9 Attention-deficit hyperactivity disorder, unspecified type; F17.200 Nicotine dependence, unspecified, uncomplicated; Z79.899 Other long term (current) drug therapy; Z98.890 Other specified postprocedural states
CPT/HCPCS: 88305; 43239; J2001; J2704

== ENCOUNTER → 2020-01-12 | Outpatient (CLI) | payer OTHER ==
[2020-01-12 10:29] LABS: Basophils # (A) 0.1 k/uL (0-0.2); Basophils % (A) 1 %; Eosinophils # (A) 0.2 k/uL (0-0.7); Eosinophils % (A) 3 %; HCT 49.4 % (39.0-53.0); HGB 17.1 gm/dL (13.0-17.5); Lymphocytes # (A) 2.3 k/uL (1.0-4.8); Lymphocytes % (A) 34 %; MCHC 34.7 g/dL (31.0-37.0); MCV 92.2 fL (80.0-100.0); Mean Platelet Volume 7.2; Monocytes # (A) 0.6 k/uL (0-1.0); Monocytes % (A) 9 %; Neutrophils # (A) 3.4 k/uL (1.3-7.7); Neutrophils % (A) 50 %; Platelet Count 243 k/uL (150-450); RBC 5.36 m/uL (4.30-5.90); RDW 12.7 % (11.5-15.5); WBC 6.7 k/uL (3.8-10.6)
== END | disposition home or self-care (01) ==
LOC: LABPAT 08:58
PROVIDERS: ATTEND Surgery
DX: Z01.818 Encounter for other preprocedural examination (principal); K21.0 Gastro-esophageal reflux disease with esophagitis; D64.9 Anemia, unspecified; F17.200 Nicotine dependence, unspecified, uncomplicated
CPT/HCPCS: 85025; 93005

== ENCOUNTER 2020-01-24 08:37 | Observation (INO) | payer OTHER ==
[~2020-01-24 08:37] MED LIST changes: +ACETAMINOPHEN TAB 500 MG TAB PO ONE; +DEXAMETHASONE SOD PHOSPHATE 10 MG/ML 1 ML VIAL IV ONE; +HEPARIN SODIUM,PORCINE 5,000 UNIT/ML 1 ML VIAL SQ ONE; -LACTATED RINGERS 1,000 ML IV SCH
[2020-01-24] MEDS ORDERED: ONDANSETRON 4 MG/2 ML VIAL ONE (09:28)
[2020-01-24] MEDS ORDERED: ACETAMINOPHEN TAB 500 MG TAB ONE (09:28)
--- NOTE | 2020-01-24 09:37 | P.GSHP ---
History of Present Illness H&P Date: 01/24/20 Chief Complaint: GERD Is a 39-year-old male referred from Dr. Adan Bernal. MThe patient has had long-standing problems with reflux esophagitis. The patient underwent recent EGD is found have evidence of esophagitis. Patient has been well informed on the procedure of laparoscopic Janine fundoplication. The patient is aware the risk of the conversion to the open procedure, risk of injury to the stomach, liver and spleen. The patient is also a risk of recurrent GERD and dysphagia symptoms. The patient understands there is a postoperative diet of full liquids for 2 weeks after surgery. Past Medical History Past Medical History: GERD/Reflux Additional Past Medical History / Comment(s): ADHD. headaches History of Any Multi-Drug Resistant Organisms: None Reported Past Surgical History: Back Surgery, Orthopedic Surgery Additional Past Surgical History / Comment(s): risa knee SX, discs removed in back, recent EGD Past Anesthesia/Blood Transfusion Reactions: No Reported Reaction Smoking Status: Current every day smoker - Past Family History Mother Family Medical History: No Reported History Medications and Allergies Home Medications Medication Instructions Recorded Confirmed Type Dextroamphetamine/Amphetamine 30 mg PO BID 11/04/13 01/19/20 History [Adderall] Albuterol Inhaler (Mhu) [Ventolin 1 - 2 puff INHALATION Q4-6H PRN #1 08/22/19 01/19/20 Rx Hfa Inhaler (Mhu)] inhaler Omeprazole [PriLOSEC] 20 mg PO AC-BID 12/28/19 01/19/20 History Allergies Allergy/AdvReac Type Severity Reaction Status Date / Time No Known Allergies Allergy Verified 01/24/20 09:19 Surgical - Exam - General well developed, well nourished, no distress - Eyes PERRL - ENT normal pinna - Neck no masses - Respiratory normal expansion - Abdomen Abdomen: soft, non tender Assessment and Plan Assessment: GERD. We'll perform laparoscopic Janine fundoplication.
[2020-01-24] MEDS ORDERED: DEXAMETHASONE SOD PHOSPHATE 10 MG/ML 1 ML VIAL IV ONE (09:40)
[2020-01-24] MEDS ORDERED: HEPARIN SODIUM,PORCINE 5,000 UNIT/ML 1 ML VIAL ONE (09:42)
[2020-01-24] MEDS: LACTATED RINGERS 1,000 ML IV SCH (09:55)
[2020-01-24] MEDS ORDERED: ALBUTEROL INHALER 60 PUFF/8 GM INHALER (MHU) INHALATION ONE (10:07)
[2020-01-24] MEDS ORDERED: LIDOCAINE 1% INJ 10MG/ML (20 ML MDV) ONE (10:07)
[2020-01-24] MEDS ORDERED: fentaNYL (PF) 50 MCG/ML 2 ML AMP ONE (10:07)
[2020-01-24] MEDS ORDERED: ROCURONIUM BROMIDE 10 MG/ML 5 ML VIAL IV ONE (10:07)
[2020-01-24] MEDS ORDERED: NEOSTIGMINE 1 MG/ML 10 ML VIAL ONE (10:07)
[2020-01-24] MEDS ORDERED: GLYCOPYRROLATE 0.2 MG/ML 2 ML VIAL ONE (10:07)
[2020-01-24] MEDS ORDERED: MIDAZOLAM 2 MG/2 ML VIAL ONE (10:07)
[2020-01-24] MEDS ORDERED: SUCCINYLCHOLINE CHLORIDE 100 MG/5 ML SYR IV ONE (10:07)
[2020-01-24] MEDS ORDERED: PROPOFOL 10 MG/ML 20 ML VIAL IV ONE (10:07)
[2020-01-24] MEDS ORDERED: BUPIVACAINE (PF) 0.25% 30 ML VIAL SQ ONE (10:28)
[2020-01-24] MEDS ORDERED: ONDANSETRON 4 MG/2 ML VIAL IVP PRN (10:49)
--- NOTE | 2020-01-24 10:49 | P.OP ---
Date of Procedure: 01/24/20 Preoperative Diagnosis: GERD Postoperative Diagnosis: GERD Procedure(s) Performed: Laparoscopic Janine fundal plication Anesthesia: ILDA Surgeon: William Alston Estimated Blood Loss (ml): 5 Pathology: none sent Condition: stable Disposition: PACU Description of Procedure: The patient was placed on the operating table in the supine position. The patient received general anesthesia. And was placed in dorsal lithotomy position. The patient was prepped and draped in the usual sterile fashion. The skin incision sites were anesthetized with 1% local Xylocaine. The skin was incised in the left periumbilical area and then using a blade less 5 mm trocar under direct visualization panel cavity was entered. After adequate insufflation the laparoscope was then placed into the peritoneal cavity. Next a 5 mm trochars placed in the right epigastric position. Another 5 millimeter trocar the right lateral position. Another 5 millimeter trocar in the left lateral position a 5 mm trocar is placed in the left epigastric position. And then the initial 5 mm trocar was exchanged for a 10 mm trocar. The left lateral lobe liver was retracted. The hernia was seen. The crural defect was then dissected using the Harmonic scissors device. A 360 crural dissection was p erformed the esophagus stomach was reduced back into the peritoneal Cavity. The crural defect was then closed using 2-0 Ethibond suture. Next the fundus of the stomach was mobilized using the [place] scissors device. and then a 58-Welsh bougie dilator was placed oropharynx passed into the esophagus and stomach the fundal plication wrap was then performed by grasping the fundus posteriorly and bringing it around the esophagus and stomach fundoplication was then performed using 2-0 Ethibond suture. Care was taken that the fundal location rested over top of the intra-abdominal esophagus. There was no injury seen to the stomach or esophagus. The dilator was then withdrawn. The abdomen was irrigated there is no bleeding seen. The trochars were then withdrawn and then skin incision sites were closed using 3-0 Monocryl suture Steri-Strips are applied. Patient thought procedure well and sent to recovery room in stable condition.
[2020-01-24] MEDS ORDERED: HYDROmorphone 1 MG/ML 1 ML SYRINGE IVP ONE ×4 (11:13→12:17)
[2020-01-24] MEDS ORDERED: KETOROLAC 15 MG/ML 1 ML VIAL IVP ONE (11:19)
[2020-01-24] MEDS ORDERED: LACTATED RINGERS 1,000 ML IV ONE ×2 (11:30)
[2020-01-24] MEDS ORDERED: diphenhydrAMINE 50 MG/ML 1 ML VIAL IVP ONE (12:18)
[2020-01-24] MEDS: D5-0.45% NACL WITH KCL 20MEQ/L 1,000 ML IV SCH ×2 (13:17→22:50)
--- NOTE | 2020-01-24 15:02 | FL ---
SINGLE CONTRAST ESOPHAGRAM: CLINICAL HISTORY: 39-year-old male rule out leak/obstruction status post is a fundoplication today. TECHNIQUE: Single contrast exam performed with 35 ml [id number] contrast. Total fluoroscopy time: 1 minute 21 seconds. Total images: 21 FINDINGS: The patient swallowed oral contrast without difficulty or delay. Esophageal peristalsis and motility are within normal limits. There are postsurgical changes of the GE junction with only initial passage of contrast from the esop hagus into the stomach during each swallow. The patient drank slightly more than half of the oral con trast made available (approximately 35 mL) and contrast at the end of the study has pulled up to the mid chest level. There are recurrent episodes of intraesophageal reflux. Mild postsurgical free air o n the left. No abnormal extension of contrast or extravasation to suggest leak. IMPRESSION: 1. Moderate obstruction at the surgical level status post Janine fundoplication. Patient ingested onl y 35 mL of contrast and it remains pooled up to the mid chest level. 2. Recurrent episodes of intraesophageal reflux. 3. There is some intermittent passage across the GE junction which shows no evidence for leak. 4. Mild postsurgical free air on the left.
[2020-01-24] MEDS: HYDROmorphone 1 MG/ML 1 ML SYRINGE IVP PRN ×3 (15:07→23:30)
[2020-01-24] MEDS: NICOTINE 14MG/24HR PATCH TRANSDERM SCH (15:55)
--- NOTE | 2020-01-24 23:32 | CONS ---
CONSULTATION This patient is a 39-year-old white male. Medical consultation status post Janine fundoplication. No chest pain, shortness of breath. He states anxiety medicine is what he needs. He took some Ativan at home and said it has great improvement. He is not having pressure in the chest. He had Janine fundoplication. Home medicines reviewed. Fourteen-point review of systems negative except for HPI. CARDIOVASCULAR: S1, S2. LUNGS: Clear. GI: Soft. HEMATOLOGY: Negative Homans. PSYCH: Fair mood and affect. Temperature 97.5, pulse 50s to 60s, respiratory rate 16-18, blood pressure 120s over 80s, 60s, O2 94% to 99% on room air. ASSESSMENT: 1. Status post Janine fundoplication. 2. Nicotine addiction. 3. Suspect chronic obstructive pulmonary disease. 4. Anxiety. 5. Bradycardia. 6. Attention deficit hyperactivity disorder. Continue home medicines. Possible discharge home tomorrow if he is doing well. Wait for upper GI swallow to make sure there is no obstruction and possible discharge home in the morning. Continue home medications. MMODL / IJN: [id number] /
[2020-01-25] MEDS: HYDROmorphone 1 MG/ML 1 ML SYRINGE IVP PRN ×3 (03:35→11:24)
[2020-01-25] MEDS: D5-0.45% NACL WITH KCL 20MEQ/L 1,000 ML IV SCH (05:15)
[2020-01-25] MEDS: LACTATED RINGERS 1,000 ML IV SCH (05:22)
[2020-01-25] MEDS: NICOTINE 14MG/24HR PATCH TRANSDERM SCH (07:19)
[2020-01-25 08:18] VITALS: BP 142/92; PULSE 73; RESP 16; TEMP 97.8
[2020-01-25] MEDS ORDERED: ENOXAPARIN 40 MG/0.4 ML SYRINGE SQ SCH (09:00)
[2020-01-25 12:39] VITALS: BMI 29.8
--- NOTE | 2020-01-25 13:48 | P.DS ---
Providers Date of admission: 01/25/20 06:38 Expected date of discharge: 01/25/20 Attending physician: William Alston Consults: 01/24/20 10:49 Consult Physician Routine Consulting Provider: Adan Ashley Consult Reason/Comments: Medical management Do you want consulting provider notified?: Yes Primary care physician: Adan Ashley [facility] Course: Discharge diagnosis 1. GERD status post laparoscopic Janine fundoplication Hospital course This is a 39-year-old gentleman with a known history of reflux esophagitis. He underwent a laparoscopic Janine fundal plication yesterday with Dr. Alsotn. Patient tolerated surgery well with no complications. He has tolerated Janine clear liquid diet. He is having bowel movements. He has been up and ambulating. His esophagram did reveal moderate obstruction no evidence of leak. Patient is stable for discharge. Physician Financial Aid Manager note has been reviewed by physician. Signing provider agrees with the documented findings, assessment, and plan of care. Patient Condition at Discharge: Stable Plan - Discharge Summary Discharge Rx Participant: Yes New Discharge Prescriptions: New HYDROcodone/APAP 5-325MG [[place] 5-325] 1 tab PO Q6HR PRN 3 Days #12 tab PRN Reason: Pain Docusate [Colace] 100 mg PO BID #30 capsule Continue Dextroamphetamine/Amphetamine [Adderall] 30 mg PO BID Albuterol Inhaler (Mhu) [Ventolin Hfa Inhaler (Mhu)] 1 - 2 puff INHALATION Q4-6H PRN #1 inhaler PRN Reason: Cough Discontinued Omeprazole [PriLOSEC] 20 mg PO AC-BID Discharge Medication List Dextroamphetamine/Amphetamine [Adderall] 30 mg PO BID 11/04/13 [History] Albuterol Inhaler (Mhu) [Ventolin Hfa Inhaler (Mhu)] 1 - 2 puff INHALATION Q4-6H PRN #1 inhaler 08/22/19 [Rx] Docusate [Colace] 100 mg PO BID #30 capsule 01/25/20 [Rx] HYDROcodone/APAP 5-325MG [[place] 5-325] 1 tab PO Q6HR PRN 3 Days #12 tab 01/25/20 [Rx] Follow up Appointment(s)/Referral(s): Adan Ashley MD [Primary Care Provider] - 1 Week William Alston MD [STAFF PHYSICIAN] - 2 Weeks Activity/Diet/Wound Care/Special Instructions: No driving while taking [place] No lifting over 10 pounds You may shower. No soaking or tub baths for 2 weeks Very light activity until you are reevaluated at your follow up appointment with your surgeon Discharge Disposition: HOME SELF-CARE
== END 2020-01-25 15:34 | disposition home or self-care (01) ==
LOC: OR 08:37 → INTOOBSV 10:49 → 4SSUR 10:49 → OR 12:26 → 4SSUR 12:26 → UNDOADMOB 01-25 06:38 → OR 01-25 06:50 → 4SSUR 01-25 06:50 → UNDOADMOB 01-25 06:51 → UNDODISIN 01-25 15:34 → UNDODISOB 01-25 15:34 → OBSVTOIN 02-02 19:43 → INTOOBSV 02-02 19:43
PROVIDERS: ADMIT Surgery; ATTEND Surgery
DX: K21.0 Gastro-esophageal reflux disease with esophagitis (principal); K43.9 Ventral hernia without obstruction or gangrene; F90.9 Attention-deficit hyperactivity disorder, unspecified type; Z98.890 Other specified postprocedural states; F17.210 Nicotine dependence, cigarettes, uncomplicated; Z79.899 Other long term (current) drug therapy; F41.9 Anxiety disorder, unspecified
CPT/HCPCS: 43280; 86900; 86901; 86850; 74210; G0378 ×2; S4990 ×2; J2250; J1200; J1644; J1100; J2710; J0690; J2405; J2001; J1650; J3010; J1170 ×2; J1885; J0330; J2704; Q9967

== ENCOUNTER 2020-02-08 07:30 | Day surgery (SDC) | payer OTHER ==
[2020-02-03 15:17] VITALS: BMI 27.2
[~2020-02-08 07:30] MED LIST changes: -DEXAMETHASONE SOD PHOSPHATE 10 MG/ML 1 ML VIAL IV ONE; +LACTATED RINGERS 1,000 ML IV SCH; -LIDOCAINE 1% (10MG/ML) FOR IV START INTRADERMA PRN; +ONDANSETRON 4 MG/2 ML VIAL IVP PRN
[2020-02-08] MEDS ORDERED: ONDANSETRON 4 MG/2 ML VIAL ONE (07:59)
[2020-02-08] MEDS ORDERED: MIDAZOLAM 2 MG/2 ML VIAL IVP ONE (08:09)
[2020-02-08] MEDS ORDERED: DEXAMETHASONE SOD PHOSPHATE 10 MG/ML 1 ML VIAL IV ONE (08:15)
[2020-02-08] MEDS ORDERED: HEPARIN SODIUM,PORCINE 5,000 UNIT/ML 1 ML VIAL ONE (08:28)
--- NOTE | 2020-02-08 09:00 | P.GSHP ---
History of Present Illness H&P Date: 02/08/20 Chief Complaint: Left inguinal hernia The 32-year-old male who presents today for laparoscopic robotic-assisted repair of left inguinal hernia. He had complaints of left groin pain and mass. Past Medical History Past Medical History: GERD/Reflux Additional Past Medical History / Comment(s): ADHD. headaches History of Any Multi-Drug Resistant Organisms: None Reported Past Surgical History: Back Surgery, Orthopedic Surgery Additional Past Surgical History / Comment(s): risa knee SX, discs removed in back, recent EGD, davis fundoplication 01/24/20 Past Anesthesia/Blood Transfusion Reactions: No Reported Reaction Smoking Status: Current every day smoker - Past Family History Mother Family Medical History: No Reported History Medications and Allergies Home Medications Medication Instructions Recorded Confirmed Type Dextroamphetamine/Amphetamine 30 mg PO BID 11/04/13 02/08/20 History [Adderall] Albuterol Inhaler (Mhu) [Ventolin 1 - 2 puff INHALATION Q4-6H PRN #1 08/22/19 02/08/20 Rx Hfa Inhaler (Mhu)] inhaler Docusate [Colace] 100 mg PO BID #30 capsule 01/25/20 02/08/20 Rx Allergies Allergy/AdvReac Type Severity Reaction Status Date / Time No Known Allergies Allergy Verified 02/08/20 07:44 Surgical - Exam Vital Signs Temp Pulse Resp BP Pulse Ox 97.9 F 70 15 124/74 97 02/08/20 07:47 02/08/20 07:47 02/08/20 07:47 02/08/20 07:47 02/08/20 07:47 - General well developed, well nourished, no distress - Eyes PERRL - ENT normal pinna - Neck no masses - Respiratory normal expansion - Cardiovascular Rhythm: regular - Abdomen Abdomen: soft, non tender Hernia: inguinal (Left inguinal hernia) Assessment and Plan Assessment: Left inguinal hernia. We'll perform laparoscopic robotic-assisted repair.
[2020-02-08] MEDS ORDERED: PROPOFOL 10 MG/ML 20 ML VIAL IV ONE (09:13)
[2020-02-08] MEDS ORDERED: GLYCOPYRROLATE 0.2 MG/ML 2 ML VIAL ONE (09:13)
[2020-02-08] MEDS ORDERED: fentaNYL (PF) 50 MCG/ML 2 ML AMP ONE (09:13)
[2020-02-08] MEDS ORDERED: SUCCINYLCHOLINE CHLORIDE 100 MG/5 ML SYR IV ONE (09:13)
[2020-02-08] MEDS ORDERED: DEXAMETHASONE SOD PHOSPHATE 4 MG/ML 1 ML VIAL ONE (09:13)
[2020-02-08] MEDS ORDERED: NEOSTIGMINE 1 MG/ML 10 ML VIAL ONE (09:13)
[2020-02-08] MEDS ORDERED: ROPIVACAINE 5 MG/ML 30 ML VIAL ONE (09:13)
[2020-02-08] MEDS ORDERED: ROCURONIUM BROMIDE 10 MG/ML 5 ML VIAL IV ONE (09:13)
[2020-02-08] MEDS ORDERED: LIDOCAINE 1% INJ 10MG/ML (20 ML MDV) ONE (09:13)
[2020-02-08] MEDS ORDERED: BUPIVACAINE (PF) 0.5% 30 ML VIAL SQ ONE (09:42)
--- NOTE | 2020-02-08 10:00 | P.OP ---
Date of Procedure: 02/08/20 Preoperative Diagnosis: Left inguinal hernia Postoperative Diagnosis: Left inguinal hernia Procedure(s) Performed: Laparoscopic robotic-assisted repair of left inguinal hernia Anesthesia: ILDA Surgeon: William Alston Estimated Blood Loss (ml): 5 Pathology: none sent Condition: stable Disposition: PACU Description of Procedure: The patient's placed on the operating table in the supine position. The patient received general anesthesia. The patient's abdomen was prepped and draped in usual sterile fashion. The skin was anesthetized 1% local Xylocaine at the incision sites. Using an 11 blade a skin incision was made at the umbilicus. The fascia was grasped with a Ken and then the peritoneal cavity was entered with the Veress needle. Position of the Veress needle was confirmed with a positive drop test. After adequate insufflation a 5 mm trocar was placed into the peritoneal cavity. The Laparoscope was placed the peritoneal cavity. And a robotic 8 mm trocar was placed in the right lateral position and then another 8 mm robotic trochars placed in the left lateral position. The original 5 mm trocar was exchanged for a 12 mm trocar. The patient was placed in reverse Trendelenburg and then the patient was docked to the robot. Next the peritoneum over top of the hernia was incised and then using blunt and sharp dissection and electrocautery the hernia sac was dissected free from the floor of the inguinal canal. The hernia sac was completely reduced into the peritoneal cavity. And then using the Pro wig maker mesh the hernia was repaired. The peritoneum was then sutured with 20V lock suture. The patient was then undocked the robot. The needle was withdrawn from the peritoneal cavity. The umbilical trocar site was closed with 0 Ethibond suture. The skin was closed interrupted 3-0 Monocryl suture. Dermabond dressing was applied. Patient was sent to recovery in stable condition.
[2020-02-08] MEDS: HYDROmorphone 0.5 MG/0.5 ML SYRINGE IVP PRN ×4 (10:09→10:31)
[2020-02-08 10:17] VITALS: TEMP 97.5
[2020-02-08] MEDS ORDERED: KETOROLAC 15 MG/ML 1 ML VIAL IVP ONE (10:18)
[2020-02-08] MEDS: MEPERIDINE 50 MG/ML SYRINGE IVP ONE ×2 (10:36→10:43)
[2020-02-08] MEDS ORDERED: LACTATED RINGERS 1,000 ML IV ONE (10:46)
[2020-02-08 11:08] VITALS: RESP 16
[2020-02-08 11:12] VITALS: BP 111/66; PULSE 71
--- NOTE | 2020-02-09 07:28 | P.ANPRN ---
Procedure Note - Anesthesia - Nerve Block Performed Left Transversus Abdominis Single Time Out Performed: Yes Date of Procedure: 02/08/20 Procedure Start Time: Procedure Stop Time: Location of Patient: PreOp Indication: Acute Post-Operative Pain, Requested by Surgeon Sedation Type: Sedate with meaningful contact maintained Preparation: Sterile Prep Position: Supine Needle Types: Pajunk Needle Gauge: 21 Ultrasound used to visualize needle placement: Yes Ultrasound used to observe medication spread: Yes Blood Aspirated: No Pain Paresthesia on Injection Noted: No Resistance on Injection: Normal Image Stored and Saved: Yes Events: Uneventful and Well Tolerated (ropi .5% 20cc plus dexamethasone 4mg)
== END 2020-02-08 11:32 | disposition home or self-care (01) ==
LOC: OR 07:30
PROVIDERS: ATTEND Surgery
DX: K40.90 Unilateral inguinal hernia, without obstruction or gangrene, not specified as recurrent (principal); K21.9 Gastro-esophageal reflux disease without esophagitis; F90.9 Attention-deficit hyperactivity disorder, unspecified type; F17.210 Nicotine dependence, cigarettes, uncomplicated; Z97.2 Presence of dental prosthetic device (complete) (partial); Z98.890 Other specified postprocedural states; Z79.899 Other long term (current) drug therapy
CPT/HCPCS: 49650; S2900; 64486; 64488

== ENCOUNTER → 2020-10-17 | Outpatient (CLI) | payer OTHER ==
--- NOTE | 2020-10-22 21:00 | FL ---
EXAMINATION TYPE: FL barium swallow w SBFT DATE OF EXAM: 10/17/2020 CLINICAL INDICATION: 40-year-old male R13.10, dysphagia, history of Janine fundoplication in 2019. COMPARISON: 01/24/2020 Total Fluoroscopy Time: 1 minute 21 seconds Total images: 80 (only last image hold save screens were utilized). FINDINGS: The swallowing mechanism is normal and hypopharyngeal anatomy is preserved. The cervical and thoracic portions have a normal course and caliber. Mild tertiary peristalsis is dem onstrated. There are mucosa is normal and no persistent filling defect is encountered. There is mild persistent narrowing at the level of the GE junction. Some minimal gastric folds may ex tend above the level of the diaphragmatic hiatus. Gastroesophageal reflux could not be elicited. Following administration of barium, serial films were carried out to 50 minutes. Barium is seen to re ach the colon. Loops of jejunum and ileum are compressed and examined under fluoroscopy. The small aleta wel loops have a normal-caliber. Mucosal pattern is within normal limits. No intrinsic or extrinsic p rocess is suspected. IMPRESSION: 1. Mild persistent esophageal narrowing at the level of the diaphragmatic hiatus. Consider a tight wr ap. Also note, some minimal gastric folds seem to extend above the level of the diaphragmatic hiatus. 2. In the throat, no esophageal web, CP muscle hypertrophy, or esophageal diverticulum is seen to exp sangeeta the patient's symptoms. 3. No specific abnormality on the small bowel follow-through.
== END | disposition home or self-care (01) ==
LOC: RADFLMAIN 08:46
PROVIDERS: ATTEND Family Medicine
DX: R13.10 Dysphagia, unspecified (principal); K22.2 Esophageal obstruction
CPT/HCPCS: 74220

== ENCOUNTER 2022-04-17 00:26 | Emergency (ER) | payer OTHER ==
[2022-04-17] MEDS ORDERED: SODIUM CHLORIDE 0.9% 1,000 ML IV STA ×2 (00:27)
[2022-04-17 00:34] VITALS: BP 114/76; TEMP 97.8
--- NOTE | 2022-04-17 00:38 | ED ---
Altered Mental Status HPI - General Stated Complaint: Unresponsive Time Seen by Provider: 04/17/22 00:27 Source: EMS, RN notes reviewed, old records reviewed, Caregiver Mode of arrival: EMS Limitations: no limitations - History of Present Illness Initial Comments: This is a 42-year-old male does admit to some drug abuse. Patient coming in for weakness unresponsiveness unable to arouse himself or family was unable to arouse. Patient's friend by EMS on a conditions currently he is improving mental status no complaints of headache chest pain shortness breath or abdominal pain MD Complaint: altered mental status, confusion, decreased responsiveness, intoxication, weakness -: hour(s) Severity: severe Consistency of Symptoms: waxing and waning, getting worse Context: history of similar presentation Associated Symptoms: denies other symptoms - Related Data Home Medications Medication Instructions Recorded Confirmed Dextroamphetamine/Amphetamine 30 mg PO BID 11/04/13 02/08/20 [Adderall] Previous Rx's Medication Instructions Recorded Albuterol Inhaler [Ventolin Hfa 1 - 2 puff INHALATION Q4-6H PRN #1 08/22/19 Inhaler] inhaler Docusate [Colace] 100 mg PO BID #30 capsule 01/25/20 Docusate [Colace] 100 mg PO BID #20 capsule 02/08/20 HYDROcodone/APAP 5-325MG [[place] 1 tab PO Q6HR PRN #10 tab 02/08/20 5-325] Allergies Allergy/AdvReac Type Severity Reaction Status Date / Time No Known Allergies Allergy Verified 02/08/20 07:44 Review of Systems ROS Statement: Those systems with pertinent positive or pertinent negative responses have been documented in the HPI. ROS Other: All systems not noted in ROS Statement are negative. Past Medical History Past Medical History: GERD/Reflux Additional Past Medical History / Comment(s): ADHD. headaches History of Any Multi-Drug Resistant Organisms: None Reported Past Surgical History: Back Surgery, Orthopedic Surgery Additional Past Surgical History / Comment(s): risa knee SX, discs removed in back, recent EGD, davis fundoplication 01/24/20 Past Anesthesia/Blood Transfusion Reactions: No Reported Reaction Past Psychological History: ADD/ADHD Smoking Status: Current every day smoker - Past Family History Mother Family Medical History: No Reported History General Exam Limitations: altered mental status, physical limitation General appearance: alert, anxious, lethargic, in distress Head exam: Present: atraumatic, normocephalic, normal inspection Eye exam: Present: normal appearance, PERRL, EOMI. Absent: scleral icterus, conjunctival injection, periorbital swelling ENT exam: Present: normal exam, mucous membranes moist Neck exam: Present: normal inspection. Absent: tenderness, meningismus, lymphadenopathy Respiratory exam: Present: normal lung sounds bilaterally. Absent: respiratory distress, wheezes, rales, rhonchi, stridor Cardiovascular Exam: Present: regular rate, normal rhythm, normal heart sounds. Absent: systolic murmur, diastolic murmur, rubs, gallop, clicks GI/Abdominal exam: Present: soft, normal bowel sounds. Absent: distended, tenderness, guarding, rebound, rigid Extremities exam: Present: normal inspection, full ROM, normal capillary refill. Absent: tenderness, pedal edema, joint swelling, calf tenderness Back exam: Present: normal inspection Neurological exam: Present: alert, oriented X3, CN II-XII intact Psychiatric exam: Present: normal affect, normal mood Skin exam: Present: warm, dry, intact, normal color. Absent: rash Course Vital Signs 04/17/22 04/17/22 00:29 02:08 Temperature 97.8 F Pulse Rate 63 72 Respiratory 16 15 Rate Blood Pressure 114/76 114/76 O2 Sat by Pulse 96 97 Oximetry - Reevaluation(s) Reevaluation #1: 04/17/22 Medical record is reviewed Patient symptoms are improved here in the ER Patient informed results and questions answered Medical Decision Making - Medical Decision Making Auty male DF for evaluation of an episode of unresponsiveness. Syncopal event no acute cause found. patient is in no distress can be discharged home - Lab Data Result diagrams: 04/17/22 00:40 04/17/22 00:40 Lab Results 04/17/22 04/17/22 04/17/22 Range/Units 00:40 00:40 00:40 WBC 7.5 (3.8-10.6) k/uL RBC 4.52 (4.30-5.90) m/uL Hgb 14.7 (13.0-17.5) gm/dL Hct 41.7 (39.0-53.0) % MCV 92.3 (80.0-100.0) fL MCH 32.5 (25.0-35.0) pg MCHC 35.3 (31.0-37.0) g/dL RDW 12.8 (11.5-15.5) % Plt Count 251 (150-450) k/uL MPV 7.7 Neutrophils % 53 % Lymphocytes % 35 % Monocytes % 6 % Eosinophils % 3 % Basophils % 1 % Neutrophils # 3.9 (1.3-7.7) k/uL Lymphocytes # 2.6 (1.0-4.8) k/uL Monocytes # 0.4 (0-1.0) k/uL Eosinophils # 0.3 (0-0.7) k/uL Basophils # 0.1 (0-0.2) k/uL PT 10.1 (9.0-12.0) sec INR 0.9 (<1.2) APTT 21.3 L (22.0-30.0) sec Sodium 141 (137-145) mmol/L Potassium 3.4 L (3.5-5.1) mmol/L Chloride 103 (98-107) mmol/L Carbon Dioxide 29 (22-30) mmol/L Anion Gap 9 mmol/L BUN 17 (9-20) mg/dL Creatinine 1.03 (0.66-1.25) mg/dL Est GFR (CKD-EPI)AfAm >90 (>60 ml/min/1.73 sqM) Est GFR (CKD-EPI)NonAf >90 (>60 ml/min/1.73 sqM) Glucose 154 H (74-99) mg/dL Calcium 8.9 (8.4-10.2) mg/dL Phosphorus 4.5 (2.5-4.5) mg/dL Magnesium 2.4 H (1.6-2.3) mg/dL Total Bilirubin 0.3 (0.2-1.3) mg/dL AST 36 (17-59) U/L ALT 27 (4-49) U/L Alkaline Phosphatase 56 (38-126) U/L Troponin I (0.000-0.034) ng/mL NT-Pro-B Natriuret Pep pg/mL Total Protein 6.5 (6.3-8.2) g/dL Albumin 4.3 (3.5-5.0) g/dL Serum Alcohol <10 mg/dL 04/17/22 04/17/22 Range/Units 00:40 00:40 WBC (3.8-10.6) k/uL RBC (4.30-5.90) m/uL Hgb (13.0-17.5) gm/dL Hct (39.0-53.0) % MCV (80.0-100.0) fL MCH (25.0-35.0) pg MCHC (31.0-37.0) g/dL RDW (11.5-15.5) % Plt Count (150-450) k/uL MPV Neutrophils % % Lymphocytes % % Monocytes % % Eosinophils % % Basophils % % Neutrophils # (1.3-7.7) k/uL Lymphocytes # (1.0-4.8) k/uL Monocytes # (0-1.0) k/uL Eosinophils # (0-0.7) k/uL Basophils # (0-0.2) k/uL PT (9.0-12.0) sec INR (<1.2) APTT (22.0-30.0) sec Sodium (137-145) mmol/L Potassium (3.5-5.1) mmol/L Chloride (98-107) mmol/L Carbon Dioxide (22-30) mmol/L Anion Gap mmol/L BUN (9-20) mg/dL Creatinine (0.66-1.25) mg/dL Est GFR (CKD-EPI)AfAm (>60 ml/min/1.73 sqM) Est GFR (CKD-EPI)NonAf (>60 ml/min/1.73 sqM) Glucose (74-99) mg/dL Calcium (8.4-10.2) mg/dL Phosphorus (2.5-4.5) mg/dL Magnesium (1.6-2.3) mg/dL Total Bilirubin (0.2-1.3) mg/dL AST (17-59) U/L ALT (4-49) U/L Alkaline Phosphatase (38-126) U/L Troponin I <0.012 (0.000-0.034) ng/mL NT-Pro-B Natriuret Pep 20 pg/mL Total Protein (6.3-8.2) g/dL Albumin (3.5-5.0) g/dL Serum Alcohol mg/dL - EKG Data -: EKG Interpreted by Me (EKG sinus 60 NC 182 QRS 102 QTC 421) - Radiology Data Radiology results: report reviewed (CT brain C-spine chest and pelvis x-ray are negative for acute disease), image reviewed Disposition Clinical Impression: Fall Disposition: HOME SELF-CARE Condition: Fair Instructions (If sedation given, give patient instructions): Fall Prevention for Older Adults (ED) Is patient prescribed a controlled substance at d/c from ED?: No Referrals: Adan Ashley MD [Primary Care Provider] - 1-2 days Time of Disposition: 02:00
[2022-04-17 00:50] LABS: Basophils # (A) 0.1 k/uL (0-0.2); Basophils % (A) 1 %; Eosinophils # (A) 0.3 k/uL (0-0.7); Eosinophils % (A) 3 %; HCT 41.7 % (39.0-53.0); HGB 14.7 gm/dL (13.0-17.5); Lymphocytes # (A) 2.6 k/uL (1.0-4.8); Lymphocytes % (A) 35 %; MCH 32.5 pg (25.0-35.0); MCHC 35.3 g/dL (31.0-37.0); MCV 92.3 fL (80.0-100.0); Mean Platelet Volume 7.7; Monocytes # (A) 0.4 k/uL (0-1.0); Monocytes % (A) 6 %; Neutrophils # (A) 3.9 k/uL (1.3-7.7); Neutrophils % (A) 53 %; Platelet Count 251 k/uL (150-450); RBC 4.52 m/uL (4.30-5.90); RDW 12.8 % (11.5-15.5); WBC 7.5 k/uL (3.8-10.6)
[2022-04-17 01:09] LABS: INR 0.9 (<1.2); Prothrombin Time 10.1 sec (9.0-12.0)
[2022-04-17 01:10] LABS: ALT 27 U/L (4-49); AST 36 U/L (17-59); African American GFR (CKD) >90 (>60 ml/min/1.73 sqM); Albumin 4.3 g/dL (3.5-5.0); Alcohol <10 mg/dL; Alkaline Phosphatase 56 U/L (38-126); Anion Gap 9 mmol/L; Blood Urea Nitrogen 17 mg/dL (9-20); Calcium 8.9 mg/dL (8.4-10.2); Carbon Dioxide 29 mmol/L (22-30); Chloride 103 mmol/L (98-107); Glucose 154 mg/dL (74-99); Magnesium 2.4 mg/dL (1.6-2.3); Non-African American GFR(CKD) >90 (>60 ml/min/1.73 sqM); Phosphorus 4.5 mg/dL (2.5-4.5); Potassium 3.4 mmol/L (3.5-5.1); Sodium 141 mmol/L (137-145); Total Bilirubin 0.3 mg/dL (0.2-1.3); Total Protein 6.5 g/dL (6.3-8.2)
[2022-04-17 01:20] LABS: Partial Thromboplastin Time 21.3 sec (22.0-30.0)
--- NOTE | 2022-04-17 01:44 | CT ---
EXAMINATION TYPE: CT brain cspine wo con DATE OF EXAM: 04/17/2022 COMPARISON: CT brain 01/14/2017 HISTORY: Fall. Pain CT DLP: mGycm Automated exposure control for dose reduction was used. Images obtained of the brain and cervical spine with no contrast. The ventricles and sulci appear normal. There is no mass effect nor midline shift. No sign of intracr anial hemorrhage. No evidence of cerebral edema. Calvarium is intact. There is normal aeration of the mastoid sinuses. The cervical vertebra have fairly normal spacing and alignment. Facet joints are intact. Prevertebra l soft tissues are intact. Skull base is intact. There is incomplete fusion of the posterior arch of C1 vertebra that is developmental. IMPRESSION: Negative CT scan of the brain. No change compared to old exam. Negative CT scan of the cervical spine. No fracture.
--- NOTE | 2022-04-17 01:47 | XR ---
EXAMINATION TYPE: XR pelvis AP view DATE OF EXAM: 04/17/2022 COMPARISON: 06/05/2013 HISTORY: Pain TECHNIQUE: Single view FINDINGS: The pelvic ring is intact. There is posterior fusion surgery at L5-S1. Sacroiliac joints ar e intact. Proximal femurs and hip joints are intact. IMPRESSION: Negative exam. No fracture. No change.
--- NOTE | 2022-04-17 01:49 | XR ---
EXAMINATION TYPE: XR chest 1V portable DATE OF EXAM: 04/17/2022 COMPARISON: 08/21/2019 HISTORY: Fall. Pain. TECHNIQUE: Single view FINDINGS: Heart and mediastinum are normal. Lungs are clear. Diaphragm is normal. Exam limited by the right hand over the right lower lobe. No pleural effusion. Bony thorax is intact. No pneumothorax. IMPRESSION: No active cardiopulmonary disease. No change.
[2022-04-17 02:12] VITALS: PULSE 72; RESP 15
== END 2022-04-17 02:22 | disposition home or self-care (01) ==
LOC: EC 00:26
DX: R55 Syncope and collapse (principal); R41.82 Altered mental status, unspecified; F17.200 Nicotine dependence, unspecified, uncomplicated
CPT/HCPCS: 36415; 93005; 83880; 80053; 83735; 84100; 84484; 85025; 85610; 85730; 72170; 71045; 72125; 70450; 99285; 96360; 96361; G0480; 80320

== ENCOUNTER → 2023-01-08 | Outpatient (CLI) | payer OTHER ==
--- NOTE | 2023-01-09 08:24 | CT ---
EXAMINATION TYPE: CT lumbar spine wo con DATE OF EXAM: 01/08/2023 6:51 PM COMPARISON: 10/04/2012 HISTORY: Low back pain. No injury. Previous Sx in 2007. CT DLP: 586.9 mGycm Automated exposure control for dose reduction was used. Unenhanced CT of the lumbar spine was performed. Bone and soft tissue window settings are submitted as well as coronal and sagittal reconstructions. L1-L2: Normal disc space height. No disc herniation protrusion or central stenosis. No facet joint arthropathy. No evidence for foraminal encroachment. L2-L3: Circumferential disc bulging particularly in the facets and ligamentum flavum. Mild bilateral foraminal encroachment and borderline central stenosis L3-L4: Circumferential disc bulging particularly in the facets and ligamentum flavum. Mild bilateral foraminal encroachment and borderline central stenosis L4-L5: Broad-based central disc protrusion. Facet joints and ligamentum flavum. Suspect mild to moder ate canal stenosis bilateral carotid L5-S1: Postsurgical changes. Artifact results in nondiagnostic assessment of spinal canal is normal. Suspect bilateral foraminal laminectomy changes with transpedicular screws which appear well situated within the respective vertebral segments. No abnormal lucency surrounding the screws. IMPRESSION: 1. Multilevel disc bulging, facet hypertrophy and ligamentum flavum hypertrophy resulting in borderli ne to mild canal stenosis at multiple levels. Recommend follow-up MRI. 2. Postsurgical change L5-S1 stable
== END | disposition home or self-care (01) ==
LOC: RADCTMAIN 18:32
PROVIDERS: ATTEND Family Medicine
DX: M51.16 Intervertebral disc disorders with radiculopathy, lumbar region (principal); M48.061 Spinal stenosis, lumbar region without neurogenic claudication; M47.26 Other spondylosis with radiculopathy, lumbar region; Z98.890 Other specified postprocedural states
CPT/HCPCS: 72131